=== PATIENT | female | born 1975 | race Caucasian/White ===

== ENCOUNTER 2016-10-17 17:00 | Emergency (ER) | payer BC, OTHER ==
--- NOTE | 2016-10-17 22:32 | RAD ---
LEFT KNEE FOUR VIEWS: Date: 10-17-16 FINDINGS: A screw is seen in the patella from a prior operative procedure. No acute fracture or joint effusion was seen. There is a very minimal amount of bony spurring seen medially. The joint surfaces seem sm ooth. IMPRESSION: No acute finding. POS: HOME
== END 2016-10-17 18:40 | disposition home or self-care (01) ==
LOC: BURERS 17:00
DX: S89.92XA Unspecified injury of left lower leg, initial encounter (principal); J45.909 Unspecified asthma, uncomplicated; X58.XXXA Exposure to other specified factors, initial encounter
CPT/HCPCS: J2270